=== PATIENT | male | born 1965 | race African-American/Black ===

== ENCOUNTER 2017-08-25 14:46 | Inpatient (IN) | payer OTHER ==
[2017-08-25 17:18] VITALS: BMI 26.1
--- NOTE | 2017-08-25 20:11 | HP ---
CIWA Score - CIWA Score Nausea/Vomitin Muscle Tremors: 4-Moderate,w/Arms Extend Anxiety: 4-Mod. Anxious/Guarded Agitation: 4-Moderately Restless Paroxysmal Sweats: 1-Minimal Palms Moist Orientation: 0-Oriented Tacttile Disturbances: 0-None Auditory Disturbances: 0-None Visual Disturbances: 0-None Headache: 0-None Present CIWA-Ar Total Score: 15 Admission ROS [facility] - HPI Chief Complaint: WITHDRAWAL SX Allergies/Adverse Reactions: Allergies Allergy/AdvReac Type Severity Reaction Status Date / Time pork derived (porcine) Allergy Intermediate Rash Verified 08/25/17 18:07 No Known Drug Allergies Allergy Verified 12/01/15 12:20 History of Present Illness: 52 YEARS OLD MALE WITH LONG HISTORY OF ALCOHOL NICOTINE DEPENDENCE HAS POSITIVE PPD GERD HYPERLIPIDEMIA AND SCHIZOAFFECTIVE DISORDER IS ADMITTED TO DETOX Exam Limitations: No Limitations - Ebola screening Have you traveled outside of the country in the last 21 days: No Have you had contact with anyone from an Ebola affected area: No Have you been sick,other than usual withdrawal symptoms: No Do you have a fever: No - Review of Systems Constitutional: Changes in sleep, Weight Stable EENT: reports: Blurred Vision (NEEDED EYE GLASSES) Respiratory: reports: No Symptoms reported Cardiac: reports: No Symptoms Reported GI: reports: Nausea, Poor Fluid Intake, Indigestion, Abdominal cramping : reports: No Symptoms Reported Musculoskeletal: reports: Joint Pain (BOTH KNEES) Integumentary: reports: No Symptoms Reported Neuro: reports: Tremors Endocrine: reports: No Symptoms Reported Hematology: reports: No Symptoms Reported Psychiatric: reports: Judgement Intact, Orientated x3, Anxious, Depressed Other Systems: Reviewed and Negative Patient History - Patient Medical History Hx Anemia: No Hx Asthma: No Hx Chronic Obstructive Pulmonary Disease (COPD): No Hx Cancer: No Hx Cardiac Disorders: No Hx Congestive Heart Failure: No Hx Hypertension: No Hx Hypercholesterolemia: Yes (zocor 20mg) Hx Pacemaker: No HX Cerebrovascular Accident: No Hx Seizures: No Hx Dementia: No Hx Diabetes: No Hx Gastrointestinal Disorders: Yes (GERD) Hx Liver Disease: No Hx Genitourinary Disorders: No Hx Sexually Transmitted Disorders: No Hx Renal Disease (ESRD): No Hx Thyroid Disease: No Hx Human Immunodeficiency Virus (HIV): No (negative hx) Hx Hepatitis C: No Hx Depression: No Hx Suicide Attempt: No Hx Bipolar Disorder: No Hx Schizophrenia: Yes - Patient Surgical History Past Surgical History: No Hx Neurologic Surgery: No Hx Cataract Extraction: No Hx Cardiac Surgery: No Hx Lung Surgery: No Hx Breast Surgery: No Hx Breast Biopsy: No Hx Abdominal Surgery: No Hx Appendectomy: No Hx Cholecystectomy: No Hx Genitourinary Surgery: No Hx Orthopedic Surgery: No - PPD History Previous Implant?: Yes Documented Results: Positive w/proof Implanted On Prior [facility] Admission?: No Date: 07/24/17 Results: NEGATIVE PPD to be Administered?: No - Smoking Cessation Smoking history: Current every day smoker Have you smoked in the past 12 months: Yes Aproximately how many cigarettes per day: 10 Cigars Per Day: 0 Hx Chewing Tobacco Use: No Initiated information on smoking cessation: Yes 'Breaking Loose' booklet given: 08/25/17 - Substance & Tx. History Hx Alcohol Use: Yes Hx Substance Use: No Substance Use Type: Alcohol Hx Substance Use Treatment: Yes (05/2017 [facility]) - Substances Abused Alcohol Route: Oral Frequency: Daily Amount used: 3-4 24 oz cans beer/ 1 pint vodka Age of first use: 11 Date of Last Use: 08/25/17 Crack Route: Smoking Frequency: Daily Amount used: $50-60 Age of first use: 26 Date of Last Use: 08/20/17 Family Disease History - Family Disease History Family Disease History: Heart Disease: Father (htn.alcohol,), Mother ( htn,), [place]: Brother (), Other: Father, Mother, Brother, Sister ( NO CONTACT) Admission Physical Exam S - Vital Signs Vital Signs: Vital Signs - 24 hr 08/25/17 17:15 Temperature 97.5 F L Pulse Rate 90 Respiratory 20 Rate Blood Pressure 116/98 - Physical General Appearance: Yes: Appropriately Dressed, Moderate Distress, Tremorous, Irritable, Sweating, Anxious HEENTM: Yes: Hearing grossly Normal, Normal ENT Inspection, Normocephalic, Normal Voice Respiratory: Yes: Chest Non-Tender, Lungs Clear, Normal Breath Sounds, No Respiratory Distress, No Accessory Muscle Use Neck: Yes: Supple, Trachea in good position Breast: Yes: Breasts Symetrical Cardiology: Yes: Regular Rhythm, S1, S2, Tachycardia Abdominal: Yes: Non Tender, Soft Genitourinary: Yes: Within Normal Limits Back: Yes: Normal Inspection Musculoskeletal: Yes: full range of Motion, Gait Steady, Back pain, Muscle Pain Extremities: Yes: Normal Inspection, Normal Range of Motion, Non-Tender, Tremors Neurological: Yes: Fully Oriented, Alert, Motor Strength 5/5, Normal Response, Depressed Affect Integumentary: Yes: Warm Lymphatic: Yes: Within Normal Limits - Diagnostic (1) Alcohol dependence with uncomplicated withdrawal Current Visit: Yes Status: Acute (2) Nicotine dependence Current Visit: Yes Status: Acute Qualifiers: Nicotine product type: cigarettes Substance use status: in withdrawal Qualified Code(s): F17.213 - Nicotine dependence, cigarettes, with withdrawal; F17.213 - Nicotine dependence, cigarettes, with withdrawal (3) Schizoaffective disorder Current Visit: Yes Status: Suspected Qualifiers: Schizoaffective disorder type: unspecified Qualified Code(s): F25.9 - Schizoaffective disorder, unspecified; F25.9 - Schizoaffective disorder, unspecified; F25.9 - Schizoaffective disorder, unspecified; F25.9 - Schizoaffective disorder, unspecified (4) Hypercholesteremia Current Visit: Yes Status: Chronic (5) Positive PPD, treated Current Visit: Yes Status: Resolved (6) GERD (gastroesophageal reflux disease) Current Visit: Yes Status: Chronic Qualifiers: Esophagitis presence: without esophagitis Qualified Code(s): K21.9 - Gastro-esophageal reflux disease without esophagitis; K21.9 - Gastro- esophageal reflux disease without esophagitis; K21.9 - Gastro-esophageal reflux disease without esophagitis Cleared for Admission [facility] - Detox or Rehab [facility] Level of Care: Medically Managed Detox Regimen/Protocol: Librium [facility] Breath Alcohol Content Breath Alcohol Content: 0 Urine Drug Screen - Results Drug Screen Negative: Yes
[2017-08-25] MEDS ORDERED: ACETAMINOPHEN 325 MG TABLET (FP) PO PRN (20:13)
[2017-08-25] MEDS ORDERED: NICOTINE 14 MG/24 HOURS TOPICAL PATCH TD PRN (20:13)
[2017-08-25] MEDS ORDERED: guaiFENesin/D-METHORPHAN HB 10 ML UNIT-DOSE CUPS PO PRN (20:13)
[2017-08-25] MEDS ORDERED: NICOTINE POLACRILEX 2 MG GUM BC PRN (20:13)
[2017-08-25] MEDS ORDERED: MENTHOL/PHENOL 1 EACH UD MM PRN (20:13)
[2017-08-25] MEDS ORDERED: MAG HYDROX/AL HYDROX/SIMETH 30 ML UNIT-DOSE CUP PO PRN (20:13)
[2017-08-25] MEDS ORDERED: MAGNESIUM CITRATE 300 ML BOTTLE PO PRN (20:13)
[2017-08-25] MEDS ORDERED: hydrOXYzine PAMOATE 50 MG CAPSULE (FP) PO PRN (20:13)
[2017-08-25] MEDS ORDERED: chlordiazePOXIDE HCL 25 MG CAPSULE PO PRN (20:13)
[2017-08-25] MEDS ORDERED: P-EPHED 60MG/TRIPROLIDI 2.5MG TABLET PO PRN (20:13)
[2017-08-25] MEDS ORDERED: diphenhydrAMINE HCL 50 MG CAPSULE PO PRN (20:13)
[2017-08-25] MEDS ORDERED: MAGNESIUM HYDROX 2400MG/30ML ORAL SUSPENSION 30 ML CUP PO PRN (20:13)
[2017-08-25] MEDS ORDERED: LOPERAMIDE HCL 2 MG CAPSULE PO PRN (20:13)
[2017-08-25] MEDS: RANITIDINE HCL 150 MG TABLET (FP) PO SCH (21:42)
[2017-08-25] MEDS: ATORVASTATIN CA 10 MG TABLET (FP) PO SCH (21:42)
[2017-08-25] MEDS: THIAMINE HCL 100 MG TABLET (FP) PO SCH (21:42)
[2017-08-25] MEDS ORDERED: PATIENT'S OWN MEDICATION (NON-FORMULARY) (Amoxicillin/Potassium Clav [Amox-Clav 875-125 Mg PO SCH (22:00)
[2017-08-25] MEDS ORDERED: AMOX TR/POT CLAV 875MG/125MG TABLETS (FP) PO SCH (22:00)
[2017-08-25] MEDS: chlordiazePOXIDE HCL 25 MG CAPSULE PO SCH (22:30)
[2017-08-25 23:26] LABS: URINE APPEARANCE SLCLOUDY; URINE BLOOD NEGATIVE (NEGATIVE); URINE COLOR AMBER; URINE GLUCOSE (UA) NEGATIVE (NEGATIVE); URINE KETONE TRACE (NEGATIVE); URINE LEUK ESTERASE TRACE (NEGATIVE); URINE NITRITE NEGATIVE (NEGATIVE); URINE UROBILINOGEN 4.0 E.U/dl mg/dL (0.2-1.0)
[2017-08-25 23:29] LABS: URINE PROTEIN 1+ (NEGATIVE)
[2017-08-25 23:32] LABS: URINE HYALINE CAST 9 /lpf; URINE MUCUS MANY; URINE RBC 2 /hpf (0-3); URINE WBC 4 /hpf (3-5)
[2017-08-26] MEDS: chlordiazePOXIDE HCL 25 MG CAPSULE PO SCH ×4 (07:12→22:24)
[2017-08-26 09:41] LABS: MCH 27.5 pg (25.7-33.7); MCHC 32.9 g/dl (32.0-35.9); MEAN CELL VOLUME 83.5 fl (80-96); MEAN PLT VOLUME 8.7 fl (7.5-11.1); PLATELET COUNT 203 K/MM3 (134-434); RDW 16.1 % (11.9-15.9)
--- NOTE | 2017-08-26 09:56 | EKG ---
Test Reason : Blood Pressure : / mmHG Vent. Rate : 078 BPM Atrial Rate : 078 BPM P-R Int : 186 ms QRS Dur : 072 ms QT Int : 386 ms P-R-T Axes : 077 039 051 degrees QTc Int : 440 ms NORMAL SINUS RHYTHM NORMAL ECG NO PREVIOUS ECGS AVAILABLE Confirmed by MARGARITA BELLO MD ([id number]) on 08/26/2017 9:56:40 AM Referred By: Confirmed By:MARGARITA BELLO MD
--- NOTE | 2017-08-26 10:05 | PN ---
S CIWA - CIWA Score Nausea/Vomitin Muscle Tremors: 3 Anxiety: 3 Agitation: 2 Paroxysmal Sweats: 1-Minimal Palms Moist Orientation: 0-Oriented Tacttile Disturbances: 1-Very Mild Itch/Numbness Auditory Disturbances: 1-Very Mild Visual Disturbances: 0-None Headache: 2-Mild CIWA-Ar Total Score: 16 BHS Progress Note (SOAP) Subjective: ALERT,IRRITABLE,ANXIOUS,INTERRUPTED SLEEP,TREMOR,PAIN IN THE BODY Objective: 08/26/17 10:02 Vital Signs Temperature 97.5 F L 08/26/17 06:00 Pulse Rate 75 08/26/17 06:00 Respiratory Rate 18 08/26/17 06:00 Blood Pressure 119/71 08/26/17 06:00 O2 Sat by Pulse Oximetry (%) EKG NSR,NORMAL ECG Laboratory Last Values WBC 6.0 K/mm3 (4.0-10.0) 08/26/17 08:00 RBC 4.97 M/mm3 (4.00-5.60) 08/26/17 08:00 Hgb 13.6 GM/dL (11.7-16.9) 08/26/17 08:00 Hct 41.5 % (35.4-49) 08/26/17 08:00 MCV 83.5 fl (80-96) 08/26/17 08:00 MCH 27.5 pg (25.7-33.7) 08/26/17 08:00 MCHC 32.9 g/dl (32.0-35.9) 08/26/17 08:00 RDW 16.1 % (11.9-15.9) H 08/26/17 08:00 Plt Count 203 K/MM3 (134-434) 08/26/17 08:00 MPV 8.7 fl (7.5-11.1) 08/26/17 08:00 Urine Color Daniela 08/25/17 23:10 Urine Appearance Slcloudy 08/25/17 23:10 Urine pH 6.0 (5.0-8.0) 08/25/17 23:10 Ur Specific [place] 1.020 (1.005-1.025) 08/25/17 23:10 Urine Protein 1+ (NEGATIVE) H 08/25/17 23:10 Urine Glucose (UA) Negative (NEGATIVE) 08/25/17 23:10 Urine Ketones Trace (NEGATIVE) H 08/25/17 23:10 Urine Blood Negative (NEGATIVE) 08/25/17 23:10 Urine Nitrite Negative (NEGATIVE) 08/25/17 23:10 Urine Bilirubin 2.0 (NEGATIVE) 08/25/17 23:10 Urine Urobilinogen 4.0 e.u/dl mg/dL (0.2-1.0) 08/25/17 23:10 Urine RBC 2 /hpf (0-3) 08/25/17 23:10 Urine WBC 4 /hpf (3-5) 08/25/17 23:10 Ur Epithelial Cells Rare /hpf (FEW) 08/25/17 23:10 Hyaline Casts 9 /lpf 08/25/17 23:10 Urine Mucus Many 08/25/17 23:10 LABS PENDING Assessment: 08/26/17 10:03 WITHDRAWAL SYMPTOM Plan: CONTINUE DETOX
[2017-08-26 10:18] LABS: ALBUMIN 3.7 g/dl (3.4-5.0); ALK PHOS 122 U/L (45-117); ANION GAP 6 (8-16); BILIRUBIN,TOTAL 1.2 mg/dL (0.2-1.0); CALCIUM 8.9 mg/dL (8.5-10.1); CO2 27 mmol/L (21-32); CREATININE 0.9 mg/dL (0.7-1.3); GLUCOSE,RANDOM 87 mg/dL (74-106); SGOT/AST 24 U/L (15-37); SGPT/ALT 45 U/L (12-78); TOT PROT 6.7 g/dl (6.4-8.2)
[2017-08-26] MEDS: CLAVULANATE PO SCH ×2 (10:28→22:24)
[2017-08-26] MEDS: AMOXICILLIN PO SCH ×2 (10:28→22:24)
[2017-08-26] MEDS: RANITIDINE HCL 150 MG TABLET (FP) PO SCH ×2 (10:29→22:23)
[2017-08-26] MEDS: PRENATAL VITAMINS W/ FOLIC ACID TABLET (FP) PO SCH (10:29)
--- NOTE | 2017-08-26 11:21 | CONSULT ---
[facility] Psychiatric Consult - Data Date of interview: 08/26/17 Admission source: [facility] Identifying data: Readmission to [facility] for this 52 y/o AA male seeking detox treatment on for alcohol and cocaine (crack) dependence.Patient is single without children,homeless,unemployed and supported on SSI benefits. Substance Abuse History: Discussed with patient in this session.Confirmed [facility] report. Smoking Cessation. Smoking history: Current every day smoker. Have you smoked in the past 12 months: Yes. Aproximately how many cigarettes per day : 10. Cigars Per Day: 0. Hx Chewing Tobacco Use: No. Initiated information on smoking cessation: Yes. 'Breaking Loose' booklet given: 08/25/17. - Substance & Tx. History. Hx Alcohol Use: Yes. Hx Substance Use: No. Substance Use Type: Alcohol. Hx Substance Use Treatment: Yes (05/2017 [facility]). - Substances Abused. Alcohol. Route: Oral. Frequency: Daily. Amount used: 3 -4 24 oz cans beer/ 1 pint vodka. Age of first use: 11. Date of Last Use: 01/10. Crack. Route: Smoking. Frequency: Daily. Amount used: $50-60. Age of first use: 26. Date of Last Use: 08/20/17 Medical History: History of positive PPD (treated),GERD and dyslipidemia. Psychiatric History: Diagnosed with Schizoaffective Disorder (2003).Multiple psychiatric hospitalizations ([facility] ).Patient reports that he gets OPD care at the [facility] clinic in [facility].Prescribed risperdal 4 mg/hs + remeron 45 mg/hs + celexa 20 mg/day.Has been off medications for one month (self-report).Mr Cloud admits to one suicide attempt (self-mutilation),years ago,at the of his mother. Physical/Sexual Abuse/Trauma History: No reported history of abuse. Additional Comment: Drug Screen is negative. Mental Status Exam - Mental Status Exam Alert and Oriented to: Time, Place, Person Cognitive Function: Good Patient Appearance: Well Groomed Mood: Hopeful, Euthymic Affect: Appropriate, Normal Range Patient Behavior: Appropriate, Cooperative Speech Pattern: Clear Voice Loudness: Normal Thought Process: Intact, Goal Oriented Thought Disorder: Not Present Hallucinations: Denies Suicidal Ideation: Denies Homicidal Ideation: Denies Insight/Judgement: Poor Sleep: Poorly, Difficulty falling asleep Appetite: Good Muscle strength/Tone: Normal Gait/Station: Normal Psychiatric Findings - Problem List ([place] 1, 2,3) (1) Schizoaffective disorder Current Visit: Yes Status: Chronic Qualifiers: Schizoaffective disorder type: unspecified Qualified Code(s): F25.9 - Schizoaffective disorder, unspecified; F25.9 - Schizoaffective disorder, unspecified; F25.9 - Schizoaffective disorder, unspecified; F25.9 - Schizoaffective disorder, unspecified (2) Alcohol dependence with uncomplicated withdrawal Current Visit: Yes Status: Acute (3) Cocaine dependence, uncomplicated Current Visit: Yes Status: Acute (4) Nicotine dependence Current Visit: Yes Status: Acute Qualifiers: Nicotine product type: cigarettes Substance use status: in withdrawal Qualified Code(s): F17.213 - Nicotine dependence, cigarettes, with withdrawal; F17.213 - Nicotine dependence, cigarettes, with withdrawal (5) GERD (gastroesophageal reflux disease) Current Visit: Yes Status: Chronic Qualifiers: Esophagitis presence: without esophagitis Qualified Code(s): K21.9 - Gastro-esophageal reflux disease without esophagitis; K21.9 - Gastro- esophageal reflux disease without esophagitis; K21.9 - Gastro-esophageal reflux disease without esophagitis (6) Hypercholesteremia Current Visit: Yes Status: Chronic (7) Positive PPD, treated Current Visit: Yes Status: Resolved (8) Insomnia Current Visit: Yes Status: Acute - Initial Treatment Plan Initial Treatment Plan: Psychoeducation.Detoxification.Medications : celexa 20 mg po daily + remeron 15 mg po hs (titration to 45 mg will follow) + risperdal 2 mg po bid.Side effects/benefits of each drug are discussed with the patient.Made aware,in particular,of potential for abnormal involuntary movements (dystonias,dyskinesias,akathisia),sexual impotence,galactorrhea, gynecomastia,metabolic syndrome and cardiovascular adverse events (risperdal), suicidal ideation/sexual dysfunction (celexa) and oversedation,orthostasis ( remeron).Patient endorses history of good tolerability to these medications.Insists on their continuation in this hospital course.Observation.
[2017-08-26 11:41] LABS: HIV 1 & 2 AB NEGATIVE; HIV 1 AGp24 NEGATIVE
[2017-08-26] MEDS: ATORVASTATIN CA 10 MG TABLET (FP) PO SCH (22:23)
[2017-08-26] MEDS: risperiDONE 2 MG TABLET PO SCH (22:23)
[2017-08-26] MEDS: MIRTAZAPINE 15 MG TABLET (FP) PO SCH (22:24)
[2017-08-26] MEDS: THIAMINE HCL 100 MG TABLET (FP) PO SCH (22:24)
[2017-08-27] MEDS: chlordiazePOXIDE HCL 25 MG CAPSULE PO SCH ×3 (05:54→17:29)
[2017-08-27] MEDS: CLAVULANATE PO SCH ×2 (10:18→22:35)
[2017-08-27] MEDS: AMOXICILLIN PO SCH ×2 (10:18→22:35)
[2017-08-27] MEDS: PRENATAL VITAMINS W/ FOLIC ACID TABLET (FP) PO SCH (10:18)
[2017-08-27] MEDS: RANITIDINE HCL 150 MG TABLET (FP) PO SCH ×2 (10:18→22:35)
[2017-08-27] MEDS: risperiDONE 2 MG TABLET PO SCH ×2 (10:18→22:34)
[2017-08-27] MEDS: CITALOPRAM HYDROBROMIDE 20 MG TABLET (FP) PO SCH (10:18)
--- NOTE | 2017-08-27 11:13 | PN ---
S CIWA - CIWA Score Nausea/Vomitin Muscle Tremors: 3 Anxiety: 3 Agitation: 2 Paroxysmal Sweats: 1-Minimal Palms Moist Orientation: 0-Oriented Tacttile Disturbances: 1-Very Mild Itch/Numbness Auditory Disturbances: 1-Very Mild Visual Disturbances: 0-None Headache: 2-Mild CIWA-Ar Total Score: 16 BHS Progress Note (SOAP) Subjective: alert,irritable,anxious,interrupted sleep,tremor,pain in the body and back Objective: 08/27/17 11:12 Vital Signs Temperature 98.3 F 08/27/17 10:06 Pulse Rate 70 08/27/17 10:06 Respiratory Rate 16 08/27/17 10:06 Blood Pressure 114/70 08/27/17 10:06 O2 Sat by Pulse Oximetry (%) Laboratory Last Values WBC 6.0 K/mm3 (4.0-10.0) 08/26/17 08:00 RBC 4.97 M/mm3 (4.00-5.60) 08/26/17 08:00 Hgb 13.6 GM/dL (11.7-16.9) 08/26/17 08:00 Hct 41.5 % (35.4-49) 08/26/17 08:00 MCV 83.5 fl (80-96) 08/26/17 08:00 MCH 27.5 pg (25.7-33.7) 08/26/17 08:00 MCHC 32.9 g/dl (32.0-35.9) 08/26/17 08:00 RDW 16.1 % (11.9-15.9) H 08/26/17 08:00 Plt Count 203 K/MM3 (134-434) 08/26/17 08:00 MPV 8.7 fl (7.5-11.1) 08/26/17 08:00 Sodium 140 mmol/L (136-145) 08/26/17 08:00 Potassium 4.0 mmol/L (3.5-5.1) 08/26/17 08:00 Chloride 107 mmol/L (98-107) 08/26/17 08:00 Carbon Dioxide 27 mmol/L (21-32) 08/26/17 08:00 Anion Gap 6 (8-16) L 08/26/17 08:00 BUN 14 mg/dL (7-18) 08/26/17 08:00 Creatinine 0.9 mg/dL (0.7-1.3) 08/26/17 08:00 Creat Clearance w eGFR > 60 (>60) 08/26/17 08:00 Random Glucose 87 mg/dL (74-106) 08/26/17 08:00 Calcium 8.9 mg/dL (8.5-10.1) 08/26/17 08:00 Total Bilirubin 1.2 mg/dL (0.2-1.0) H D 08/26/17 08:00 AST 24 U/L (15-37) 08/26/17 08:00 ALT 45 U/L (12-78) D 08/26/17 08:00 Alkaline Phosphatase 122 U/L (45-117) H D 08/26/17 08:00 Total Protein 6.7 g/dl (6.4-8.2) 08/26/17 08:00 Albumin 3.7 g/dl (3.4-5.0) 08/26/17 08:00 Urine Color Daniela 08/25/17 23:10 Urine Appearance Slcloudy 08/25/17 23:10 Urine pH 6.0 (5.0-8.0) 08/25/17 23:10 Ur Specific [place] 1.020 (1.005-1.025) 08/25/17 23:10 Urine Protein 1+ (NEGATIVE) H 08/25/17 23:10 Urine Glucose (UA) Negative (NEGATIVE) 08/25/17 23:10 Urine Ketones Trace (NEGATIVE) H 08/25/17 23:10 Urine Blood Negative (NEGATIVE) 08/25/17 23:10 Urine Nitrite Negative (NEGATIVE) 08/25/17 23:10 Urine Bilirubin 2.0 (NEGATIVE) 08/25/17 23:10 Urine Urobilinogen 4.0 e.u/dl mg/dL (0.2-1.0) 08/25/17 23:10 Urine RBC 2 /hpf (0-3) 08/25/17 23:10 Urine WBC 4 /hpf (3-5) 08/25/17 23:10 Ur Epithelial Cells Rare /hpf (FEW) 08/25/17 23:10 Hyaline Casts 9 /lpf 08/25/17 23:10 Urine Mucus Many 08/25/17 23:10 RPR Titer Nonreactive (NONREACTIVE) 08/26/17 08:00 HIV 1&2 Antibody Screen Negative 08/26/17 08:00 HIV P24 Antigen Negative 08/26/17 08:00 Assessment: 08/27/17 11:13 withdrawal symptom Plan: continue detox
[2017-08-27] MEDS: BACITRACIN 0.9 GM PACKET TP SCH (22:34)
[2017-08-27] MEDS: chlordiazePOXIDE 5 MG CAPSULE PO SCH (22:35)
[2017-08-27] MEDS: ATORVASTATIN CA 10 MG TABLET (FP) PO SCH (22:35)
[2017-08-27] MEDS: THIAMINE HCL 100 MG TABLET (FP) PO SCH (22:35)
[2017-08-27] MEDS: MIRTAZAPINE 15 MG TABLET (FP) PO SCH (22:37)
[2017-08-28] MEDS: chlordiazePOXIDE 5 MG CAPSULE PO SCH ×3 (05:30→17:29)
[2017-08-28] MEDS: CLAVULANATE PO SCH ×2 (10:49→22:35)
[2017-08-28] MEDS: AMOXICILLIN PO SCH ×2 (10:49→22:35)
[2017-08-28] MEDS: BACITRACIN 0.9 GM PACKET TP SCH ×2 (10:49→22:40)
[2017-08-28] MEDS: PRENATAL VITAMINS W/ FOLIC ACID TABLET (FP) PO SCH (10:49)
[2017-08-28] MEDS: risperiDONE 2 MG TABLET PO SCH ×2 (10:50→22:34)
[2017-08-28] MEDS: CITALOPRAM HYDROBROMIDE 20 MG TABLET (FP) PO SCH (10:50)
[2017-08-28] MEDS: RANITIDINE HCL 150 MG TABLET (FP) PO SCH ×2 (10:50→22:34)
--- NOTE | 2017-08-28 12:02 | PN ---
S Progress Note (SOAP) Subjective: ALERT,IRRITABLE,ANXIOUS,INTERRUPTED SLEEP Objective: 08/28/17 12:01 Vital Signs Temperature 98 F 08/28/17 10:17 Pulse Rate 74 08/28/17 10:17 Respiratory Rate 20 08/28/17 10:17 Blood Pressure 134/73 08/28/17 10:17 O2 Sat by Pulse Oximetry (%) Assessment: 08/28/17 12:01 WITHDRAWAL SYMPTOM Plan: CONTINUE DETOX,DISCHARGE IN AM
[2017-08-28] MEDS ORDERED: CYCLOBENZAPRINE HCL 10 MG TABLET (FP) PO ONE (19:57)
[2017-08-28] MEDS ORDERED: CITALOPRAM HYDROBROMIDE 20 MG TABLET (FP) PO SCH (22:00)
--- NOTE | 2017-08-28 22:10 | PN ---
[facility] Progress Note Note: received nurse call that the patient has muscle ache from spasm flexile 5mg x 1 dose continue detox
[2017-08-28] MEDS: MIRTAZAPINE 15 MG TABLET (FP) PO SCH (22:34)
[2017-08-28] MEDS: chlordiazePOXIDE HCL 10 MG CAPSULE PO SCH (22:34)
[2017-08-28] MEDS: THIAMINE HCL 100 MG TABLET (FP) PO SCH (22:35)
[2017-08-28] MEDS: ATORVASTATIN CA 10 MG TABLET (FP) PO SCH (22:39)
[2017-08-29] MEDS: chlordiazePOXIDE HCL 10 MG CAPSULE PO SCH (06:11)
--- NOTE | 2017-08-29 08:18 | PN ---
[facility] Progress Note Note: chest x ray cancelled yesterday patient had cat scan on 08/01/17 copy in chart, has been follow up with pcp in [place]
--- NOTE | 2017-08-29 08:34 | DS ---
[facility] Detox Discharge Summary Admission Date: 08/25/17 Discharge Date: 08/29/17 - History Present History: Alcohol Dependence, Cocaine Dependence Additional Comments: follow up with after [facility] as arrangement Pertinent Past History: hypercolesterolemia nicotine dependence schizoaffective disorder postitiv ppd treated gerd - Physical Exam Results Vital Signs: Vital Signs Temperature 96.3 F L 08/29/17 07:48 Pulse Rate 68 08/29/17 07:48 Respiratory Rate 20 08/29/17 07:48 Blood Pressure 116/66 08/29/17 07:48 O2 Sat by Pulse Oximetry (%) Pertinent Admission Physical Exam Findings: withdrawal symptom - Treatment Hospital Course: Detox Protocol Followed, Detoxed Safely, Responded well, Discharged Condition Good Patient has Accepted a Rehab Referral to: declined - Medication Discharge Medications: Ambulatory Orders Simvastatin [Zocor -] 20 mg PO HS #30 04/09/15 Mirtazapine [Remeron -] 45 mg PO HS #30 tablet 12/02/15 Risperidone [Risperdal -] 4 mg PO HS #30 tablet 12/02/15 Amoxicillin/Potassium Clav [Amox-Clav 875-125 mg Tablet] 1 each PO BID 08/25/17 Citalopram Hydrobromide [Celexa -] 20 mg PO DAILY 08/25/17 Citalopram Hydrobromide [Celexa -] 20 mg PO DAILY #30 tablet 08/26/17 Mirtazapine [Remeron -] 30 mg PO HS #30 tablet 08/26/17 Risperidone [Risperdal] 4 mg PO HS #30 tablet 08/26/17 - Diagnosis (1) Alcohol dependence with uncomplicated withdrawal Current Visit: Yes Status: Acute (2) GERD (gastroesophageal reflux disease) Current Visit: Yes Status: Chronic Qualifiers: Esophagitis presence: without esophagitis Qualified Code(s): K21.9 - Gastro-esophageal reflux disease without esophagitis; K21.9 - Gastro- esophageal reflux disease without esophagitis; K21.9 - Gastro-esophageal reflux disease without esophagitis (3) Hypercholesteremia Current Visit: Yes Status: Chronic (4) Schizoaffective disorder Current Visit: Yes Status: Chronic Qualifiers: Schizoaffective disorder type: unspecified Qualified Code(s): F25.9 - Schizoaffective disorder, unspecified; F25.9 - Schizoaffective disorder, unspecified; F25.9 - Schizoaffective disorder, unspecified; F25.9 - Schizoaffective disorder, unspecified (5) Positive PPD, treated Current Visit: Yes Status: Resolved (6) Left knee pain Current Visit: No Status: Chronic - AMA Did Patient Leave Against Medical Advice: No
[2017-08-29] MEDS: BACITRACIN 0.9 GM PACKET TP SCH (09:16)
[2017-08-29] MEDS: AMOXICILLIN PO SCH (09:16)
[2017-08-29] MEDS: CLAVULANATE PO SCH (09:16)
[2017-08-29] MEDS: PRENATAL VITAMINS W/ FOLIC ACID TABLET (FP) PO SCH (09:16)
[2017-08-29] MEDS: RANITIDINE HCL 150 MG TABLET (FP) PO SCH (09:19)
[2017-08-29] MEDS: risperiDONE 2 MG TABLET PO SCH (09:19)
[2017-08-29 10:29] VITALS: BP 123/80; PULSE 100; TEMP 97.7
[2017-08-29] MEDS ORDERED: CITALOPRAM HYDROBROMIDE 20 MG TABLET (FP) PO SCH (22:00)
== END 2017-08-29 11:00 | disposition home or self-care (01) | DRG 774 ==
LOC: YASAS 14:46 → Y6N 20:48
PROVIDERS: ADMIT Internal Medicine; ATTEND Internal Medicine
PROC: HZ2ZZZZ Detoxification Services for Substance Abuse Treatment (ICD-10-PCS; principal; 2017-08-25)
DX: F10.230 Alcohol dependence with withdrawal, uncomplicated (principal); F14.20 Cocaine dependence, uncomplicated; F17.213 Nicotine dependence, cigarettes, with withdrawal; F25.9 Schizoaffective disorder, unspecified; K21.9 Gastro-esophageal reflux disease without esophagitis; E78.5 Hyperlipidemia, unspecified; M25.562 Pain in left knee; R76.11 Nonspecific reaction to tuberculin skin test without active tuberculosis; G47.00 Insomnia, unspecified; R00.0 Tachycardia, unspecified; Z91.018 Allergy to other foods
CPT/HCPCS: 36415; 80053; 81003; 81015; 85027; 86593; 87389; 93005; 93010

== ENCOUNTER 2019-10-10 09:29 | Inpatient (IN) | payer OTHER ==
--- NOTE | 2019-10-10 12:02 | HP ---
CIWA Score Nausea/Vomitin Muscle Tremors: 2 Anxiety: 2 Agitation: 2 Paroxysmal Sweats: 2 Orientation: 0-Oriented Tacttile Disturbances: 2-Mild Itch/Numbness/Burn Auditory Disturbances: 0-None Visual Disturbances: 0-None Headache: 2-Mild CIWA-Ar Total Score: 14 - Admission Criteria OASAS Guidelines: Admission for Medically Managed Detox: Requires at least one of the followin. CIWA greater than 12 2. Seizures within the past 24 hours 3. Delirium tremens within the past 24 hours 4. Hallucinations within the past 24 hours 5. Acute intervention needed for co occurring medical disorder 6. Acute intervention needed for co occurring psychiatric disorder 7. Severe withdrawal that cannot be handled at a lower level of care (continued vomiting, continued diarrhea, abnormal vital signs) requiring intravenous medication and/or fluids 8. Patient presents the following: CIWA greater than 12 Admission Criteria Met: Admission criteria met Admitting History and Physical - Smoking History Smoking history: Current every day smoker Have you smoked in the past 12 months: Yes Aproximately how many cigarettes per day: 10 - Alcohol/Substance Use Hx Alcohol Use: Yes Admission ROS [facility] Chief Complaint: I need detox Allergies/Adverse Reactions: Allergies Allergy/AdvReac Type Severity Reaction Status Date / Time pork derived (porcine) Allergy Intermediate Rash Verified 08/25/17 18:07 No Known Drug Allergies Allergy Verified 12/01/15 12:20 History of Present Illness: 54 year old man with alcohol use presents for detox, his last treatment at [facility] was in 2017. Patient is admitted in no apparent distress. Exam Limitations: No Limitations - Ebola screening Have you traveled outside of the country in the last 21 days: No (N) Have you had contact with anyone from an Ebola affected area: No Have you been sick,other than usual withdrawal symptoms: No Do you have a fever: No - Review of Systems Constitutional: Chills, Changes in sleep EENT: reports: Other (wears eye glasses) Respiratory: reports: Cough Cardiac: reports: No Symptoms Reported GI: reports: Poor Appetite, Abdominal cramping : reports: No Symptoms Reported Musculoskeletal: reports: Back Pain, Joint Pain, Muscle Pain, Muscle Weakness Integumentary: reports: Dryness Neuro: reports: Headache, Numbness, Tremors Endocrine: reports: No Symptoms Reported Hematology: reports: No Symptoms Reported Psychiatric: reports: Anxious, Depressed Other Systems: Reviewed and Negative Patient History - Patient Medical History Hx Anemia: No Hx Asthma: No Hx Chronic Obstructive Pulmonary Disease (COPD): No Hx Cancer: No Hx Cardiac Disorders: No Hx Congestive Heart Failure: No Hx Hypertension: No Hx Hypercholesterolemia: Yes Hx Pacemaker: No HX Cerebrovascular Accident: No Hx Seizures: No Hx Dementia: No Hx Diabetes: No Hx Gastrointestinal Disorders: Yes (GERD) Hx Liver Disease: No Hx Genitourinary Disorders: No Hx Sexually Transmitted Disorders: No Hx Renal Disease (ESRD): No Hx Thyroid Disease: No Hx Human Immunodeficiency Virus (HIV): No Hx Hepatitis C: No Hx Depression: Yes Hx Suicide Attempt: No Hx Bipolar Disorder: No Hx Schizophrenia: Yes - Patient Surgical History Past Surgical History: No - PPD History Previous Implant?: Yes Documented Results: Negative w/proof Implanted On Prior [facility] Admission?: Yes Date: 07/24/17 Results: NEGATIVE PPD to be Administered?: Yes - Smoking Cessation Smoking history: Current every day smoker Have you smoked in the past 12 months: Yes Aproximately how many cigarettes per day: 20 Cigars Per Day: 0 Hx Chewing Tobacco Use: No Initiated information on smoking cessation: Yes 'Breaking Loose' booklet given: 10/10/19 Admission Physical Exam BHS - Physical General Appearance: Yes: No Apparent Distress, Irritable HEENTM: Yes: Hearing grossly Normal, Normal ENT Inspection, Normocephalic Respiratory: Yes: Chest Non-Tender, Lungs Clear, No Respiratory Distress, No Accessory Muscle Use Neck: Yes: No masses,lesions,Nodules, Supple Breast: Yes: Breast Exam Deferred Cardiology: Yes: Regular Rhythm, Regular Rate, S1, S2 Abdominal: Yes: Normal Bowel Sounds, Soft Genitourinary: Yes: Within Normal Limits Back: Yes: Within Normal Limits Musculoskeletal: Yes: Back pain, Muscle Pain, Muscle weakness Extremities: Yes: Non-Tender, Tremors Neurological: Yes: architect marine II-XII NML intact, Fully Oriented, Alert, Motor Strength 5/5, Normal Mood/Affect, Normal Response Integumentary: Yes: Normal Color, Dry Lymphatic: Yes: Within Normal Limits - Diagnostic (1) Alcohol dependence with uncomplicated withdrawal Current Visit: Yes Status: Acute (2) Cocaine dependence, uncomplicated Current Visit: No Status: Acute (3) Insomnia Current Visit: No Status: Acute Qualifiers: Insomnia type: alcohol-induced Qualified Code(s): F10.982 - Alcohol use, unspecified with alcohol-induced sleep disorder (4) Nicotine dependence Current Visit: Yes Status: Acute Qualifiers: Nicotine product type: cigarettes Substance use status: uncomplicated Qualified Code(s): F17.210 - Nicotine dependence, cigarettes, uncomplicated (5) Cannabis dependence, uncomplicated Current Visit: Yes Status: Chronic (6) GERD (gastroesophageal reflux disease) Current Visit: No Status: Chronic Qualifiers: Esophagitis presence: without esophagitis Qualified Code(s): K21.9 - Gastro -esophageal reflux disease without esophagitis (7) Hypercholesteremia Current Visit: No Status: Chronic (8) Left knee pain Current Visit: No Status: Acute Qualifiers: Chronicity: chronic Qualified Code(s): M25.562 - Pain in left knee; G89.29 - Other chronic pain Cleared for Admission BHS - Detox or Rehab [facility] Level of Care: Medically Managed Detox Regimen/Protocol: Librium Claeared for Rehab Admission: No Breathalyzer - Breathalyzer Breathalyzer: 0 Urine Drug Screen - Test Device Lot number: [id number] Expiration date: 06/23/21 - Control Is test valid?: Yes - Results Drug screen NEGATIVE: No Urine drug screen results: THC-Marijuana, PATRICIA-Cocaine Inpatient Rehab Admission - Rehab Decision to Admit Inpatient rehab admission?: No
[2019-10-10] MEDS ORDERED: MAGNESIUM HYDROX 2400MG/30ML ORAL SUSPENSION 30 ML CUP PO PRN (12:03)
[2019-10-10] MEDS ORDERED: NICOTINE POLACRILEX 2 MG GUM BUC PRN (12:03)
[2019-10-10] MEDS ORDERED: BISMUTH SUBSALICYLATE 524 MG/30 ML UD PO PRN (12:03)
[2019-10-10] MEDS ORDERED: MAGNESIUM CITRATE 300 ML BOTTLE PO PRN (12:03)
[2019-10-10] MEDS ORDERED: METHOCARBAMOL 500 MG TABLET PO PRN (12:03)
[2019-10-10] MEDS ORDERED: MAG HYDROX/AL HYDROX/SIMETH 30 ML UNIT-DOSE CUP PO PRN (12:03)
[2019-10-10] MEDS ORDERED: ACETAMINOPHEN 325 MG TABLET (FP) PO PRN ×2 (12:03)
[2019-10-10] MEDS ORDERED: IBUPROFEN 400 MG TABLET (FP) PO PRN (12:03)
[2019-10-10] MEDS ORDERED: MENTHOL/PHENOL 1 EACH UD MM PRN (12:03)
[2019-10-10] MEDS ORDERED: hydrOXYzine PAMOATE 50 MG CAPSULE (FP) PO PRN (12:03)
[2019-10-10 13:35] VITALS: BMI 22.6
[2019-10-10] MEDS: chlordiazePOXIDE HCL 25 MG CAPSULE PO SCH ×2 (14:00→22:14)
[2019-10-10] MEDS: NICOTINE 14 MG/24 HOURS TOPICAL PATCH TD SCH (14:01)
[2019-10-10] MEDS: chlordiazePOXIDE HCL 10 MG CAPSULE PO PRN (17:16)
[2019-10-10] MEDS: ATORVASTATIN CA 10 MG TABLET (FP) PO SCH (22:14)
[2019-10-10] MEDS: THIAMINE HCL 100 MG TABLET (FP) PO SCH (22:14)
[2019-10-10] MEDS: MELATONIN 5 MG TABLETS PO PRN (22:15)
[2019-10-11] MEDS: chlordiazePOXIDE HCL 10 MG CAPSULE PO PRN (02:08)
[2019-10-11] MEDS: chlordiazePOXIDE HCL 25 MG CAPSULE PO SCH ×3 (05:15→20:17)
[2019-10-11] MEDS: PRENATAL VITAMINS W/ FOLIC ACID TABLET (FP) PO SCH (10:29)
[2019-10-11] MEDS: NICOTINE 14 MG/24 HOURS TOPICAL PATCH TD SCH (10:29)
--- NOTE | 2019-10-11 11:32 | CONSULT ---
[facility] Psychiatric Consult - Data Date of interview: 10/11/19 Admission source: Self-referred Identifying data: Mr Cloud is a 54 years old sinle Black male, unemployed receiving SSI, homeless seeking detox treatment for alcohol and cocaine Substance Abuse History: Reports history of alcohol and cocaine use. Refer to addiction counselor's summary for further information Medical History: Significant for GERD, dyslipidemia and history of treatment for positive PPD. Psychiatric History: Diagnosed with Schizoaffective Disorder (2003).Multiple psychiatric hospitalizations ([facility] ).Patient reports that he gets OPD care at the [facility] [place].Prescribed risperdal 4 mg/hs + remeron 45 mg/hs + celexa 20 mg/day.Has been off medications for one month (self-report).Mr Cloud admits to one suicide attempt (self-mutilation),years ago,at the of his mother. Psychiatric Findings - Problem List ([place] 1, 2,3) (1) Schizoaffective disorder Current Visit: No Status: Chronic Qualifiers: Schizoaffective disorder type: unspecified Qualified Code(s): F25.9 - Schizoaffective disorder, unspecified
[2019-10-11] MEDS ORDERED: FLU VACCINE QUAD 60 MCG/0.5 ML (MDV 19-20) IM ONE (12:00)
--- NOTE | 2019-10-11 12:11 | PN ---
S CIWA - CIWA Score Nausea/Vomitin-No Nausea/No Vomiting Muscle Tremors: 3 Anxiety: 2 Agitation: 2 Paroxysmal Sweats: 2 Orientation: 0-Oriented Tacttile Disturbances: 0-None Auditory Disturbances: 0-None Visual Disturbances: 0-None Headache: 0-None Present CIWA-Ar Total Score: 9 BHS Progress Note (SOAP) Subjective: sweats shakes interrupted sleep body aches Objective: 10/11/19 12:10 Vital Signs Temperature 97.9 F 10/11/19 09:27 Pulse Rate 66 10/11/19 09:27 Respiratory Rate 16 10/11/19 09:27 Blood Pressure 99/57 L 10/11/19 09:27 O2 Sat by Pulse Oximetry (%) pending labs aaox3 ambulating no acute distress Assessment: 10/11/19 12:10 withdrawal sx Plan: continue detox increase fluids
[2019-10-11 12:18] LABS: ALBUMIN 3.6 g/dl (3.4-5.0); BILIRUBIN,TOTAL 0.4 mg/dL (0.2-1); BLOOD UREA NITROGEN 9.5 mg/dL (7-18); CALCIUM 8.8 mg/dL (8.5-10.1); CREATININE 0.9 mg/dL (0.55-1.3); HEMATOCRIT 37.9 % (35.4-49); HEMOGLOBIN 12.5 GM/dL (11.7-16.9); MCH 27.8 pg (25.7-33.7); MCHC 33.1 g/dl (32.0-35.9); MEAN PLT VOLUME 8.5 fl (7.5-11.1); PLATELET COUNT 225 K/MM3 (134-434); POTASSIUM 3.7 mmol/L (3.5-5.1); RBC 4.51 M/mm3 (4.00-5.60); RDW 15.4 % (11.9-15.9); TOT PROT 6.1 g/dl (6.4-8.2); WHITE BLOOD COUNT 4.7 K/mm3 (4.0-10.0)
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
[2019-10-11] MEDS ORDERED: CITALOPRAM HYDROBROMIDE 20 MG TABLET (FP) PO SCH ×2 (14:30→22:00)
[2019-10-11] MEDS: CITALOPRAM HYDROBROMIDE 20 MG TABLET (FP) PO SCH (20:17)
[2019-10-11] MEDS: risperiDONE 2 MG TABLET PO SCH (20:17)
[2019-10-11] MEDS: MIRTAZAPINE 15 MG TABLET (FP) PO SCH (20:17)
[2019-10-11] MEDS: MELATONIN 5 MG TABLETS PO PRN (20:18)
[2019-10-11] MEDS: ATORVASTATIN CA 10 MG TABLET (FP) PO SCH (21:08)
[2019-10-11] MEDS: THIAMINE HCL 100 MG TABLET (FP) PO SCH (21:09)
[2019-10-11] MEDS ORDERED: MIRTAZAPINE 15 MG TABLET (FP) PO SCH (22:00)
[2019-10-11] MEDS ORDERED: risperiDONE 2 MG TABLET PO SCH (22:00)
[2019-10-11] MEDS: ONDANSETRON *ODT* 4 MG TABLET SL PRN (22:41)
[2019-10-12] MEDS: chlordiazePOXIDE 5 MG CAPSULE PO SCH ×3 (05:53→20:11)
[2019-10-12] MEDS: NICOTINE 14 MG/24 HOURS TOPICAL PATCH TD SCH (10:11)
[2019-10-12] MEDS: PRENATAL VITAMINS W/ FOLIC ACID TABLET (FP) PO SCH (10:11)
--- NOTE | 2019-10-12 10:45 | PN ---
S CIWA - CIWA Score Nausea/Vomitin-No Nausea/No Vomiting Muscle Tremors: 2 Anxiety: 1-Mildly Anxious Agitation: 2 Paroxysmal Sweats: 1-Minimal Palms Moist Orientation: 0-Oriented Tacttile Disturbances: 0-None Auditory Disturbances: 0-None Visual Disturbances: 0-None Headache: 0-None Present CIWA-Ar Total Score: 6 BHS Progress Note (SOAP) Subjective: sweats interrupted sleep mild shakes Objective: 10/12/19 10:40 Vital Signs Temperature 99.3 F 10/12/19 10:23 Pulse Rate 81 10/12/19 10:23 Respiratory Rate 18 10/12/19 10:23 Blood Pressure 102/69 10/12/19 10:23 O2 Sat by Pulse Oximetry (%) Laboratory Tests 10/11/19 10/11/19 10/11/19 08:15 08:15 08:15 WBC 4.7 RBC 4.51 Hgb 12.5 Hct 37.9 MCV 84.0 MCH 27.8 MCHC 33.1 RDW 15.4 Plt Count 225 MPV 8.5 Sodium 143 Potassium 3.7 Chloride 112 H Carbon Dioxide 25 Anion Gap 6 L BUN 9.5 Creatinine 0.9 Est GFR (CKD-EPI)AfAm 110.27 Est GFR (CKD-EPI)NonAf 95.14 Random Glucose 100 Calcium 8.8 Total Bilirubin 0.4 AST 13 L ALT 16 Alkaline Phosphatase 90 Total Protein 6.1 L Albumin 3.6 RPR Titer Nonreactive HIV 1&2 Antibody Screen HIV P24 Antigen 10/11/19 08:15 WBC RBC Hgb Hct MCV MCH MCHC RDW Plt Count MPV Sodium Potassium Chloride Carbon Dioxide Anion Gap BUN Creatinine Est GFR (CKD-EPI)AfAm Est GFR (CKD-EPI)NonAf Random Glucose Calcium Total Bilirubin AST ALT Alkaline Phosphatase Total Protein Albumin RPR Titer HIV 1&2 Antibody Screen Negative HIV P24 Antigen Negative labs noted aaox3 ambulating no acute distress Assessment: 10/12/19 11:06 mild withdrawals Plan: continue detox increase fluids
[2019-10-12] MEDS: ONDANSETRON *ODT* 4 MG TABLET SL PRN (10:49)
[2019-10-12] MEDS: CITALOPRAM HYDROBROMIDE 20 MG TABLET (FP) PO SCH (20:11)
[2019-10-12] MEDS: risperiDONE 2 MG TABLET PO SCH (20:11)
[2019-10-12] MEDS: MIRTAZAPINE 15 MG TABLET (FP) PO SCH (20:11)
[2019-10-12] MEDS: ATORVASTATIN CA 10 MG TABLET (FP) PO SCH (21:11)
[2019-10-12] MEDS: THIAMINE HCL 100 MG TABLET (FP) PO SCH (21:12)
[2019-10-13] MEDS ORDERED: chlordiazePOXIDE HCL 10 MG CAPSULE PO PRN
[2019-10-13] MEDS: chlordiazePOXIDE HCL 10 MG CAPSULE PO SCH ×3 (05:25→22:55)
[2019-10-13] MEDS: PRENATAL VITAMINS W/ FOLIC ACID TABLET (FP) PO SCH (09:40)
[2019-10-13] MEDS: NICOTINE 14 MG/24 HOURS TOPICAL PATCH TD SCH (09:40)
--- NOTE | 2019-10-13 11:11 | PN ---
[facility] CIWA - CIWA Score Nausea/Vomitin-No Nausea/No Vomiting Muscle Tremors: 1-None Visible, but [place] Anxiety: 1-Mildly Anxious Agitation: 1-Slight > Activity Paroxysmal Sweats: No Perspiration Orientation: 0-Oriented Tacttile Disturbances: 0-None Auditory Disturbances: 0-None Visual Disturbances: 0-None Headache: 0-None Present CIWA-Ar Total Score: 3 BHS Progress Note (SOAP) Subjective: anxiety Objective: 10/13/19 11:10 Vital Signs Temperature 96.8 F L 10/13/19 09:37 Pulse Rate 108 H 10/13/19 09:37 Respiratory Rate 20 10/13/19 09:37 Blood Pressure 120/66 10/13/19 09:37 O2 Sat by Pulse Oximetry (%) aaox3 ambulating no acute distress Assessment: 10/13/19 11:10 mild withdrawal sx Plan: continue detox d/c in am
[2019-10-13] MEDS ORDERED: PNEUMOCOCCAL 23 VACCINE 0.5 ML VIAL SQ ONE (15:31)
[2019-10-13] MEDS ORDERED: FLU VACC QS2019-20(6MOS UP)/PF 60 MCG/0.5 ML SYRINGE IM ONE (15:32)
[2019-10-13] MEDS: ONDANSETRON *ODT* 4 MG TABLET SL PRN (16:53)
[2019-10-13] MEDS ORDERED: FLU VACCINE QUAD 60 MCG/0.5 ML (MDV 19-20) IM ONE (17:00)
[2019-10-13] MEDS ORDERED: PNEUMOCOCCAL 23 VACCINE 0.5 ML VIAL IM ONE (17:00)
[2019-10-13] MEDS: risperiDONE 2 MG TABLET PO SCH (19:48)
[2019-10-13] MEDS: CITALOPRAM HYDROBROMIDE 20 MG TABLET (FP) PO SCH (19:48)
[2019-10-13] MEDS: MIRTAZAPINE 15 MG TABLET (FP) PO SCH (19:49)
[2019-10-13] MEDS: THIAMINE HCL 100 MG TABLET (FP) PO SCH (23:41)
[2019-10-13] MEDS: ATORVASTATIN CA 10 MG TABLET (FP) PO SCH (23:41)
[2019-10-14] MEDS ORDERED: chlordiazePOXIDE HCL 10 MG CAPSULE PO ONE (05:00)
--- NOTE | 2019-10-14 09:18 | DS ---
[facility] Detox Discharge Summary Admission Date: 10/10/19 Discharge Date: 10/14/19 - History Present History: Alcohol Dependence, Cannabis Dependence, Cocaine Dependence, Pcp Dependence - Physical Exam Results Vital Signs: Vital Signs Temperature 97.0 F L 10/14/19 06:25 Pulse Rate 77 10/14/19 06:25 Respiratory Rate 18 10/14/19 06:25 Blood Pressure 124/80 10/14/19 06:25 O2 Sat by Pulse Oximetry (%) Pertinent Admission Physical Exam Findings: pt arrived in withdrawals Vital Signs Temperature 97.0 F L 10/14/19 06:25 Pulse Rate 77 10/14/19 06:25 Respiratory Rate 18 10/14/19 06:25 Blood Pressure 124/80 10/14/19 06:25 O2 Sat by Pulse Oximetry (%) Laboratory Tests 10/11/19 10/11/19 10/11/19 08:15 08:15 08:15 WBC 4.7 RBC 4.51 Hgb 12.5 Hct 37.9 MCV 84.0 MCH 27.8 MCHC 33.1 RDW 15.4 Plt Count 225 MPV 8.5 Sodium 143 Potassium 3.7 Chloride 112 H Carbon Dioxide 25 Anion Gap 6 L BUN 9.5 Creatinine 0.9 Est GFR (CKD-EPI)AfAm 110.27 Est GFR (CKD-EPI)NonAf 95.14 Random Glucose 100 Calcium 8.8 Total Bilirubin 0.4 AST 13 L ALT 16 Alkaline Phosphatase 90 Total Protein 6.1 L Albumin 3.6 RPR Titer Nonreactive HIV 1&2 Antibody Screen HIV P24 Antigen 10/11/19 08:15 WBC RBC Hgb Hct MCV MCH MCHC RDW Plt Count MPV Sodium Potassium Chloride Carbon Dioxide Anion Gap BUN Creatinine Est GFR (CKD-EPI)AfAm Est GFR (CKD-EPI)NonAf Random Glucose Calcium Total Bilirubin AST ALT Alkaline Phosphatase Total Protein Albumin RPR Titer HIV 1&2 Antibody Screen Negative HIV P24 Antigen Negative pt is aaox3 ambulating no acute distress no s/s of withdrawals - Treatment Hospital Course: Detox Protocol Followed, Detoxed Safely, Responded well, Discharged Condition Good, Rehab Referral Accepted Patient has Accepted a Rehab Referral to: pt referred to [facility] - Diagnosis (1) Alcohol dependence with uncomplicated withdrawal Current Visit: Yes Status: Chronic (2) Phencyclidine dependence Current Visit: Yes Status: Chronic (3) Substance-induced sleep disorder Current Visit: Yes Status: Acute (4) Cannabis dependence, uncomplicated Current Visit: Yes Status: Chronic (5) Nicotine dependence Current Visit: Yes Status: Chronic Qualifiers: Nicotine product type: cigarettes Substance use status: uncomplicated Qualified Code(s): F17.210 - Nicotine dependence, cigarettes, uncomplicated (6) Cocaine dependence, uncomplicated Current Visit: No Status: Acute (7) Insomnia Current Visit: No Status: Acute Qualifiers: Insomnia type: alcohol-induced Qualified Code(s): F10.982 - Alcohol use, unspecified with alcohol-induced sleep disorder (8) GERD (gastroesophageal reflux disease) Current Visit: No Status: Chronic Qualifiers: Esophagitis presence: without esophagitis Qualified Code(s): K21.9 - Gastro -esophageal reflux disease without esophagitis (9) Hypercholesteremia Current Visit: No Status: Chronic (10) Left knee pain Current Visit: No Status: Chronic Qualifiers: Chronicity: chronic Qualified Code(s): M25.562 - Pain in left knee; G89.29 - Other chronic pain (11) Schizoaffective disorder Current Visit: No Status: Chronic Qualifiers: Schizoaffective disorder type: unspecified Qualified Code(s): F25.9 - Schizoaffective disorder, unspecified - AMA Did Patient Leave Against Medical Advice: No
[2019-10-14] MEDS: PRENATAL VITAMINS W/ FOLIC ACID TABLET (FP) PO SCH (10:22)
[2019-10-14] MEDS: NICOTINE 14 MG/24 HOURS TOPICAL PATCH TD SCH (10:22)
[2019-10-14 11:21] VITALS: BP 108/65; PULSE 96; TEMP 97.7
== END 2019-10-14 13:15 | disposition home or self-care (01) | DRG 774 ==
LOC: YASAS 09:29 → Y6N 12:38
PROVIDERS: ADMIT Allergy & Immunology; ATTEND Allergy & Immunology
PROC: HZ2ZZZZ Detoxification Services for Substance Abuse Treatment (ICD-10-PCS; principal; 2019-10-10)
DX: F10.230 Alcohol dependence with withdrawal, uncomplicated (principal); F14.20 Cocaine dependence, uncomplicated; F16.20 Hallucinogen dependence, uncomplicated; F12.20 Cannabis dependence, uncomplicated; F17.210 Nicotine dependence, cigarettes, uncomplicated; F19.282 Other psychoactive substance dependence with psychoactive substance-induced sleep disorder; F25.9 Schizoaffective disorder, unspecified; K21.9 Gastro-esophageal reflux disease without esophagitis; E78.00 Pure hypercholesterolemia, unspecified; M25.562 Pain in left knee; G89.29 Other chronic pain; Z91.018 Allergy to other foods
CPT/HCPCS: 36415; 71046-TC-FY; 80053; 85027; 86593; 87389; 90732; G0009; Q0162; Q2036

== ENCOUNTER 2025-08-03 12:24 | Inpatient (IN) | payer OTHER ==
[2025-08-03] MEDS ORDERED: BENZONATATE 200 MG CAPSULE PO PRN (13:33)
[2025-08-03] MEDS ORDERED: IBUPROFEN 400 MG TABLET (FP) PO PRN (13:33)
[2025-08-03] MEDS ORDERED: LOPERAMIDE HCL 2 MG CAPSULE PO PRN (13:33)
[2025-08-03] MEDS ORDERED: MAGNESIUM HYDROX 2400MG/30ML ORAL SUSPENSION 30 ML CUP PO PRN (13:33)
[2025-08-03] MEDS ORDERED: guaiFENesin 600 MG TABLET.ER (FP) PO PRN (13:33)
[2025-08-03] MEDS ORDERED: MAG HYDROX/AL HYDROX/SIMETH 30 ML UNIT-DOSE CUP PO PRN (13:33)
[2025-08-03] MEDS ORDERED: NICOTINE POLACRILEX 2 MG LOZENGE BC PRN (13:33)
[2025-08-03] MEDS ORDERED: BENZOCAINE/MENTHOL (CHLORASEPTIC ) LOZENGE MM PRN (13:33)
[2025-08-03] MEDS ORDERED: POLYETHYLENE GLYCOL (HEALTHYLAX) 3350 17 GM PACKET PO PRN (13:33)
[2025-08-03] MEDS: IBUPROFEN 600 MG TABLET (FP) PO PRN (17:19)
[2025-08-03] MEDS ORDERED: MIRTAZAPINE 30 MG TABLET PO SCH (22:00)
[2025-08-03] MEDS ORDERED: MIRTAZAPINE 15 MG TABLET (FP) PO SCH (22:00)
[2025-08-03] MEDS ORDERED: BENZTROPINE MESYLATE 2 MG TABLET PO SCH (22:00)
[2025-08-03] MEDS: MELATONIN 5 MG TABLETS PO SCH (22:21)
[2025-08-03] MEDS: THIAMINE 100 MG TABLET PO SCH (22:22)
[2025-08-03] MEDS: MIRTAZAPINE 15 MG TABLET (FP) PO SCH (22:22)
[2025-08-03] MEDS: BENZTROPINE MESYLATE 0.5 MG TABLET (FP) PO SCH (22:22)
[2025-08-04] MEDS: PRENATAL VITAMINS W/ FOLIC ACID TABLET (FP) PO SCH (06:00)
[2025-08-08] MEDS: METHOCARBAMOL 500 MG TABLET PO PRN (09:43)
[2025-08-08] MEDS: VITAMINS A AND D TOPICAL OINTMENT TP SCH (11:04)
[2025-08-08] MEDS: NALTREXONE HCL 50 MG TABLET PO SCH (13:42)
[2025-08-08] MEDS: NALTREXONE HCL 50 MG TABLET PO ONE (13:50)
[2025-08-09] MEDS: NALTREXONE HCL 50 MG TABLET PO SCH (09:51)
[2025-08-12] MEDS: MIRTAZAPINE 15 MG TABLET (FP) PO SCH (21:15)
[2025-08-14] MEDS: hydrOXYzine PAMOATE 25 MG CAPSULE (FP) PO PRN (06:18)
[2025-08-15] MEDS ORDERED: VITAMINS A AND D TOPICAL OINTMENT TP PRN (08:30)
[2025-08-15] MEDS ORDERED: FLU VACC TS2025-26(6MOS UP)/PF 45 MCG/0.5 ML SYRINGE IM ONE (12:00)
[2025-08-15] MEDS ORDERED: PNEUMOC 20-VAL CONJ-DIP CRM/PF 0.5 ML SYRINGE IM ONE (12:00)
[2025-08-15] MEDS: FLU VACC TS2025-26(6MOS UP)/PF 45 MCG/0.5 ML SYRINGE IM ONE (14:18)
[2025-08-15] MEDS: PNEUMOC 20-VAL CONJ-DIP CRM/PF 0.5 ML SYRINGE IM ONE (14:21)
[2025-08-16] MEDS: ACETAMINOPHEN 325 MG TABLET (FP) PO PRN (06:41)
[2025-08-17 07:00] VITALS: BP 134/86; PULSE 98; RESP 16; TEMP 97.9
== END 2025-08-17 09:13 | disposition home or self-care (01) | DRG 772 ==
LOC: YASAS 12:24 → Y3NR 12:25 → Y3E 08-04 10:56
PROVIDERS: ADMIT Psychiatry & Neurology Pain Medicine; ATTEND Psychiatry & Neurology Pain Medicine
PROC: HZ42ZZZ Group Counseling for Substance Abuse Treatment, Cognitive-Behavioral (ICD-10-PCS; principal; 2025-08-03)
DX: F10.20 Alcohol dependence, uncomplicated (principal); F14.20 Cocaine dependence, uncomplicated; F16.20 Hallucinogen dependence, uncomplicated; F12.20 Cannabis dependence, uncomplicated; F17.210 Nicotine dependence, cigarettes, uncomplicated; F25.9 Schizoaffective disorder, unspecified; F19.282 Other psychoactive substance dependence with psychoactive substance-induced sleep disorder; F10.282 Alcohol dependence with alcohol-induced sleep disorder; F41.9 Anxiety disorder, unspecified; F32.A Depression, unspecified; K21.9 Gastro-esophageal reflux disease without esophagitis; Z86.11 Personal history of tuberculosis
CPT/HCPCS: 73090-TC-RT-FY; 73110-TC-RT-FY; 90656; 90677